=== PATIENT | male | born 1955 | race Hispanic/Latino ===

== ENCOUNTER 2023-04-04 06:31 | Day surgery (SDC) | payer OTHER, MEDICARE ==
[2023-04-02 11:38] LABS: BASOPHILS # (AUTO) 0.04 K/uL (0.00-0.20); BASOPHILS % (AUTO) 0.6 % (0.0-5.0); EOSINOPHILS # (AUTO) 0.19 K/uL (0.00-0.70); EOSINOPHILS % (AUTO) 2.9 % (0.0-8.0); HEMATOCRIT 46.1 % (42-54); IMMATURE GRANULOCYTE ABSOLUTE 0.01 K/uL (0-1); LYMPHOCYTES # (AUTO) 2.3 K/uL (1.0-4.8); LYMPHOCYTES % (AUTO) 35.5 % (21.0-51.0); MEAN CORPUSCULAR HEMOGLOBIN 32.6 pg (27.0-33.0); MEAN CORPUSCULAR HGB CONC 33.2 g/dL (32.0-36.0); MEAN CORPUSCULAR VOLUME 98.1 fL (79-99); MONOCYTES # (AUTO) 0.5 K/uL (0.1-1.0); MONOCYTES % (AUTO) 7.4 % (3.0-13.0); NEUTROPHILS # (AUTO) 3.5 K/uL (1.8-7.7); NEUTROPHILS % (AUTO) 53.4 % (40.0-77.0); PLATELET COUNT (AUTO) 208 K/uL (130-400); RED CELL DISTRIBUTION WIDTH 12.9 % (11.0-15.5); WHITE BLOOD COUNT (AUTO) 6.5 K/uL (4.8-10.8)
[2023-04-02 11:45] LABS: CREATININE 0.6 mg/dL (0.5-1.5)
[2023-04-02 12:29] VITALS: BP 117/69; PULSE 72; RESP 16
[2023-04-04] VITALS (19 sets, daily range): BP systolic 77–121; BP diastolic 47–74; PULSE 59–78; RESP 12–19
[~2023-04-04] VITALS: Ht 160 cm; Wt 64.9 kg
[~2023-04-04 06:31] MED LIST: FINA5TAB41 PO; LIGH1DRO OU; TAMS-1 PO
[2023-04-04] MEDS ORDERED: CEFTRIAXONE 1G VIAL ONE (07:22)
[2023-04-04] MEDS ORDERED: LACTATED RINGERS 1000ML 1,000 ML IV ONE (07:22)
[2023-04-04] MEDS ORDERED: PROPOFOL 10 MG/ML 20ML VIAL IV ONE (13:25)
[2023-04-04] MEDS ORDERED: MIDAZOLAM HCL 1 MG/ML 2ML VIAL ONE (13:25)
[2023-04-04] MEDS ORDERED: DEXAMETHASONE SOD PHOSPHATE 10MG/ML 1ML VIAL ONE (13:25)
[2023-04-04] MEDS ORDERED: SUCCINYLCHOLINE 200MG/10ML SYR ONE (13:25)
[2023-04-04] MEDS ORDERED: LIDOCAINE PF 100MG/5ML (2%) SYRINGE 5ML ONE (13:25)
[2023-04-04] MEDS ORDERED: ONDANSETRON 4MG INJ ONE (13:25)
[2023-04-04] MEDS ORDERED: FENTANYL CITRATE PF 50 MCG/1 ML 2ML VIAL ONE (13:26)
[2023-04-04] MEDS ORDERED: LIDOCAINE HCL 2% PF 20 ML JEL DISP.SYRIN MM ONE (13:38)
== END 2023-04-04 15:40 | disposition home or self-care (01) ==
LOC: DAH 06:31
PROVIDERS: ATTEND Urology
DX: R97.20 Elevated prostate specific antigen [PSA] (principal); Z20.822 Contact with and (suspected) exposure to COVID-19; R10.2 Pelvic and perineal pain; N40.0 Benign prostatic hyperplasia without lower urinary tract symptoms; Z90.49 Acquired absence of other specified parts of digestive tract; Z98.890 Other specified postprocedural states
CPT/HCPCS: 80048; 85025; 87426; 36415; 93005; 55700; 76942; 88305; 88342; 76872; 88341; A4663; J7120; J3010; J0330; J1100; J2001; J0696; J2250; J2704; J2405; A4215 ×2; A4649; A4223; A4222; A4221; J3490